=== PATIENT | male | born 1960 | race Caucasian/White ===

== ENCOUNTER 2016-09-08 13:15 | Outpatient (RCR) | payer OTHER ==
[~2016-09-08 13:15] MED LIST: CHANTIX 1MG1 MG PO; FLONASE NASAL S16 GM NS; LIPITOR20 MG PO; NORCO 325 MG-51 TAB PO; PRILOSEC 20MG20 MG PO; PRINZIDE 12.5 M1 TA1 PO; VIAGRA50 M1 PO; ZYRTEC 10MG10 MG PO
== END 2016-09-19 | disposition still patient (30) ==
LOC: WSST
DX: C32.9 Malignant neoplasm of larynx, unspecified (principal)

== ENCOUNTER 2016-12-31 07:13 | Outpatient (CLI) | payer OTHER ==
[~2016-12-31] VITALS: Ht 175.3 cm; Wt 56.2 kg
[2016-12-31] VITALS (13 sets, daily range): BP systolic 136–165; BP diastolic 89–102; PULSE 87–111
== END 2016-12-31 12:11 | disposition home or self-care (01) ==
LOC: COL.RAD 07:13
DX: R91.1 Solitary pulmonary nodule (principal); C34.92 Malignant neoplasm of unspecified part of left bronchus or lung; Z85.9 Personal history of malignant neoplasm, unspecified; Z95.9 Presence of cardiac and vascular implant and graft, unspecified
CPT/HCPCS: J2250; J3010

== ENCOUNTER → 2017-05-17 | Outpatient (CLI) | payer OTHER | LOC: COL.RAD 12:45 | DX: C01 Malignant neoplasm of base of tongue (principal); R93.8 Abnormal findings on diagnostic imaging of other specified body structures; Z90.2 Acquired absence of lung [part of] | CPT/HCPCS: Q9967 ==

== ENCOUNTER → 2017-08-22 | Outpatient (CLI) | payer OTHER | LOC: COL.RAD 07:53 | DX: C76.0 Malignant neoplasm of head, face and neck (principal); J38.7 Other diseases of larynx; J43.9 Emphysema, unspecified; Z90.2 Acquired absence of lung [part of]; Z85.118 Personal history of other malignant neoplasm of bronchus and lung | CPT/HCPCS: J7050; Q9967 ==

== ENCOUNTER → 2018-08-25 | Outpatient (CLI) | payer OTHER | LOC: COL.RAD 09:49 | DX: C34.32 Malignant neoplasm of lower lobe, left bronchus or lung (principal); C76.0 Malignant neoplasm of head, face and neck; Z95.9 Presence of cardiac and vascular implant and graft, unspecified; Z95.828 Presence of other vascular implants and grafts; Z90.2 Acquired absence of lung [part of] | CPT/HCPCS: Q9967 ==

== ENCOUNTER 2022-01-15 10:46 | Day surgery (SDC) | payer OTHER ==
[~2022-01-15] VITALS: Ht 175.3 cm; Wt 57.0 kg
[2022-01-15] MEDS ORDERED: CLARITIN 1010 MG/TAB PO (11:24)
[2022-01-15] MEDS ORDERED: PRINIVIL10 MG PO (11:25)
[2022-01-15] MEDS ORDERED: PRILOSEC 20MG20 MG PO (11:25)
[2022-01-15] MEDS ORDERED: TRELEGY ELLIPT1 EACH IH (11:26)
[2022-01-15] MEDS ORDERED: LIDODERM 5% PATC1 EA TP (11:27)
[2022-01-15] MEDS ORDERED: FLEXERIL5 MG PO (11:27)
[2022-01-15] MEDS ORDERED: VOLTAREN GEL 1%1 TU TP (11:29)
[2022-01-15 13:12] VITALS: BP 137/83; PULSE 95; TEMP 98.1
[2022-01-15 13:15] VITALS: BP 136/82; PULSE 100
[2022-01-15 13:30] VITALS: BP 144/82; PULSE 102
[2022-01-15 13:45] VITALS: BP 138/79; PULSE 100
[2022-01-15 15:55] VITALS: BP 141/91; PULSE 89; TEMP 98.1
--- NOTE | 2022-01-15 18:21 | NUR ---
VSS-see flowsheet. Tolerated oral intake. DC teaching completed, verbalized understanding. Taken via wheelchair to private vehicle for dc home with to drive.
== END 2022-01-15 14:00 | disposition home or self-care (01) ==
LOC: SDCO 10:46
DX: C15.9 Malignant neoplasm of esophagus, unspecified (principal); K22.2 Esophageal obstruction; F17.210 Nicotine dependence, cigarettes, uncomplicated
CPT/HCPCS: C1726; J2704; J7030

== ENCOUNTER 2022-04-10 12:04 | Inpatient (IN) | payer OTHER ==
[~2022-04-10] VITALS: Ht 175.3 cm; Wt 48.2 kg
[~2022-04-10 12:04] MED LIST changes: +CLARITIN 1010 MG/TAB PO; +FLEXERIL5 MG PO; +LIDODERM 5% PATC1 EA TP; +PRINIVIL10 MG PO; +TRELEGY ELLIPT1 EACH IH; +VOLTAREN GEL 1%1 TU TP
[2022-04-10 12:52] LABS: BASO % 0.4 % (0.0-2.0); EOS % 0.1 % (0.0-4.0); GRAN # 9.3 K/mm3 (1.4-6.5); GRAN % 86.9 % (42.2-75.2); HEMATOCRIT 42.4 % (42.0-52.0); HEMOGLOBIN 14.6 g/dl (13.5-18.0); LYMPH # 0.7 K/mm3 (1.2-3.4); LYMPH % 6.7 % (20.0-51.0); MEAN CELL VOLUME 95 fl (80.0-100.0); MEAN CORPUSCULAR HEMOGLOBIN 33 pg (27-31); MEAN CORPUSCULAR HGB CONC 34 g/dl (33.0-37.0); MEAN PLATELET VOLUME 9.8 fl (7.4-10.4); MONO # 0.6 K/mm3 (0.1-0.6); MONO % 5.4 % (1.7-9.3); PLATELET COUNT 315 K/mm3 (130-400); RED BLOOD COUNT 4.45 M/mm3 (4.20-5.60); REDCELL DISTRIBUTION WIDTH-CV 12.8 % (11.5-14.5)
[2022-04-10 13:12] LABS: ALANINE AMINOTRANSFERASE 19 U/L (0-55); ALBUMIN 3.8 gm/dL (3.4-4.8); ALKALINE PHOSPHATASE 101 U/L (40-150); ANION GAP 19 mmol/L (7-16); AST,SGOT 18 U/L (5-34); BILIRUBIN,TOTAL 0.5 mg/dL (0.2-1.2); BLOOD UREA NITROGEN 31 mg/dL (8-26); CALCIUM 10.5 mg/dL (8.4-10.2); CARBON DIOXIDE 20 mmol/L (23-31); CHLORIDE 107 mmol/L (98-107); CREATININE, serum 0.78 mg/dL (0.72-1.25); GLUCOSE 116 mg/dL (70-99); POTASSIUM 3.8 mmol/L (3.5-4.5); SODIUM 146 mmol/L (136-145)
[2022-04-10 13:17] LABS: INR 1.1 (0.8-3.0); PROTHROMBIN TIME 12.1 SECONDS (9.7-12.8)
[2022-04-10 13:19] LABS: TROPONIN-I < 0.010 ng/mL (0.00-0.033)
[2022-04-10] MEDS ORDERED: PATADAY5 ML OP (14:04)
[2022-04-10] MEDS ORDERED: BREZTRI AEROS10.7 GM IH (14:05)
[2022-04-10] MEDS ORDERED: TYLENOL PM EXTR1 TA1 PO (14:05)
[2022-04-10] MEDS ORDERED: TYLENOL 8 HR PO (14:05)
[2022-04-10] MEDS ORDERED: ADVIL200 MG PO (14:06)
[2022-04-10 14:39] LABS: COLLECTION METHOD CLEAN CATCH
[2022-04-10 14:50] LABS: MUCOUS Present (NOT PRESENT); PH 5 (5-8); SQUAMOUS EPITHELIAL None Seen /hpf (0-10); URINE APPEARANCE Clear (CLEAR/HAZY); URINE BACTERIA None Seen /hpf (NONE SEEN); URINE BLOOD 1+ (NEGATIVE); URINE COLOR Yellow (YELLOW); URINE GLUCOSE Negative (NEGATIVE); URINE KETONE 1+ (NEGATIVE); URINE NITRATE Negative (NEGATIVE); URINE PROTEIN(semi-quant) Negative (NEGATIVE); URINE RBC 0-2 /hpf (0-2); URINE UROBILINOGEN Negative (NEGATIVE)
[2022-04-10 16:12] VITALS: BP 124/83; PULSE 99; TEMP 97.8
--- NOTE | 2022-04-10 17:08 | NUR ---
PT ADMITTED TO UNIT. ADMISSION INTAKE AND ASSESSMENT COMPLETED. MED REC UPDATED. PT ORIENTED TO ROOM. UPDATED PT ON POC. DENIES ANY NEEDS AT THIS TIME. WILL CONTINUE TO MONITOR.
[2022-04-10 20:04] VITALS: BP 121/82; PULSE 90; TEMP 98
[2022-04-11] VITALS (7 sets, daily range): BP systolic 115–176; BP diastolic 72–97; PULSE 69–99; TEMP 97.2–98.3
--- NOTE | 2022-04-11 05:15 | NUR ---
ASSESSMENT COMPLETE FOR BEHAVIORAL CONSULTANT. PT RESTING IN BED WATCHING TV. PT EXPRESSED CONCERNS ABOUT NOT HAVING IV FLUIDS RUNNING. PT STATED HIS DOCTOR TOLD HIM, HE WOULD BE ON FLUIDS OVER THE WEEKEND AND HE WOULD BE GETTING A FEEDING TUBE PLACEMENT ON TUESDAY. HOSPITALIST CALLED. D5 1/2 NS ORDERED AT 75MLS/HR. PT DENIED GENERAL PAIN, CHEST PAIN, PALPITAIONS, N,V,D, SOB OR DIZZINESS. PT EXPRESSED NO ADDITIONAL NEEDS AT THIS TIME. CALL LIGHT WITHIN REACH.
[2022-04-11 06:01] LABS: BASO % 0.4 % (0.0-2.0); EOS % 0.3 % (0.0-4.0); GRAN # 8.1 K/mm3 (1.4-6.5); GRAN % 85.3 % (42.2-75.2); HEMATOCRIT 41.7 % (42.0-52.0); HEMOGLOBIN 13.5 g/dl (13.5-18.0); LYMPH # 0.7 K/mm3 (1.2-3.4); LYMPH % 7.6 % (20.0-51.0); MEAN CORPUSCULAR HEMOGLOBIN 32 pg (27-31); MEAN CORPUSCULAR HGB CONC 32 g/dl (33.0-37.0); MEAN PLATELET VOLUME 10.1 fl (7.4-10.4); MONO # 0.6 K/mm3 (0.1-0.6); PLATELET COUNT 298 K/mm3 (130-400); RED BLOOD COUNT 4.17 M/mm3 (4.20-5.60); REDCELL DISTRIBUTION WIDTH-CV 13.1 % (11.5-14.5)
[2022-04-11 06:10] LABS: CALCIUM 9.8 mg/dL (8.4-10.2); CREATININE, serum 0.71 mg/dL (0.72-1.25); POTASSIUM 3.4 mmol/L (3.5-4.5)
[2022-04-11 06:30] LABS: MEAN CELL VOLUME 100 fl (80.0-100.0)
--- NOTE | 2022-04-11 09:34 | NUR ---
PT RESTING IN BED. MORNING MEDICATIONS GIVEN. SHIFT ASSESSMENT COMPLETED. PT CURRENTLY ON ROOM AIR AND DENIES SOB. CHEST PORT FLUSHES AND HAS GOOD BLOOD RETURN, IVF INFUSING. PT DENIES ANY NEEDS AT THIS TIME. WILL CONTINUE TO MONITOR.
--- NOTE | 2022-04-11 11:19 | NUR ---
poultry process worker met with patient Vinnie, and his spouse Adrienne at bedside. Patient gives verbal consent to speak to this Public Address System Operator with spouse present; he presents alert and oriented. He states he and spouse currently live in a two-story home, and he states he is fully independent in his ADLs/IADLs. He states his home is accessible for him, and he utilizes no durable medical equipment. 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 Patient wonders if he may be eligible for a portable oxygen concentrator to take with him to work and run errands, just in case he needs it, noting he has become increasingly [id number] over the past 2 weeks and has had to sit to rest/catch his breath. He believes this will give him an increased sense of security, safety and independence. He notes his plan is to transfer to [facility] where he is planning to have a feeding tube to support his nutrition and hydration needs. He will also be treated for cancer there. Patient sees Dr. Cedrick Ruiz at [facility] for primary care, and he is assigned an specialty manufacturing supervisor, Madelin Walls . He obtains his medications at [place]. Patient and spouse both report plan for patient to return to home at discharge from hospital care, noting they are aware that they may be supported for discharge planning at [facility]. Patient states he does not have a DPOA-HC, "But we need one" and he and his spouse request paperwork to review, verbalizing understanding of how to complete should they desire for their EMR. *Discharge plan: transfer to [facility] vs. home*
[2022-04-11 11:37] LABS: MAGNESIUM 2.1 mg/dL (1.6-2.6); PHOSPHOROUS 2.9 mg/dL (2.3-4.7)
[2022-04-12 03:10] VITALS: BP 113/71; PULSE 93; TEMP 97.7
[2022-04-12 07:07] LABS: CALCIUM 9.3 mg/dL (8.4-10.2); CREATININE, serum 0.58 mg/dL (0.72-1.25); MAGNESIUM 1.8 mg/dL (1.6-2.6); PHOSPHOROUS 2.7 mg/dL (2.3-4.7); POTASSIUM 3.2 mmol/L (3.5-4.5)
[2022-04-12 07:32] VITALS: BP 117/77; PULSE 91; TEMP 97.9
--- NOTE | 2022-04-12 10:36 | NUR ---
Initial visit; Patient extremely weak and thanked [employer] for looking in on him. Patient trying to survive cancer by holding on to get a feeding tube and hopefully receive treatments. Patient thanked [employer] for keeping him in her prayers. [employer] will follow-up.
[2022-04-12 12:12] VITALS: BP 120/79; PULSE 85; TEMP 98
[2022-04-12 16:02] VITALS: BP 127/75; PULSE 84; TEMP 98.1
--- NOTE | 2022-04-12 18:57 | NUR ---
Ambulance crew here to transport patient to at this time. Paperwork sent. Report given to receiving nurse.
== END 2022-04-12 19:02 | disposition short-term general hospital (02) | DRG 177 ==
LOC: COL.ER 12:04 → MEDICAL 15:05
PROVIDERS: Emergency Medicine; Internal Medicine; ADMIT Student in an Organized Health Care Education/Training Program
DX: J86.0 Pyothorax with fistula (principal); J96.01 Acute respiratory failure with hypoxia; J69.0 Pneumonitis due to inhalation of food and vomit; E43 Unspecified severe protein-calorie malnutrition; C15.9 Malignant neoplasm of esophagus, unspecified; Z68.1 Body mass index [BMI] 19.9 or less, adult; Z20.822 Contact with and (suspected) exposure to COVID-19; E86.0 Dehydration; J44.9 Chronic obstructive pulmonary disease, unspecified; I10 Essential (primary) hypertension; E87.6 Hypokalemia; Z90.89 Acquired absence of other organs; Z90.2 Acquired absence of lung [part of]; Z72.89 Other problems related to lifestyle; Z85.118 Personal history of other malignant neoplasm of bronchus and lung; Z23 Encounter for immunization
CPT/HCPCS: OP; J0360; J1650; J2543; J3411; J3480; J7030; J7120; Q9967